=== PATIENT | female | born 1965 | race African-American/Black ===

== ENCOUNTER 2018-12-04 07:44 | Emergency (ER) | payer OTHER, SELFPAY ==
[~2018-12-04] VITALS: Ht 167.6 cm; Wt 79.4 kg
[2018-12-04 07:56] VITALS: BP 134/90
[2018-12-04] MEDS ORDERED: HYDR-3164 PO (08:52)
--- NOTE | 2018-12-04 08:52 | PHYS DOC ---
Past Medical History Past Medical History: Hypertension Additional Past Surgical Histo: R. LEG, L. ARM. Alcohol Use: Occasionally Drug Use: None Adult General Chief Complaint Chief Complaint: MECHANICAL FALL HPI HPI Patient is a 53 year old female who presents with complaining of a fall or extremities injuries. Patient states she had an accidental fall from a standing position while she was at 43 days ago and landed on her left side. Patient complaining of pain in left elbow, left knee, right arm and forearm and back and neck pain and states she was seen in another facility unremarkable x-ray and treated with muscle relaxant and ibuprofen without improvement of her pain. Patient rated her pain as 8/10 denies focal neuro deficit, fever and chills, vomiting and nausea, headache. Review of Systems Review of Systems Constitutional: Denies fever or chills [] Eyes: Denies change in visual acuity, redness, or eye pain [] HENT: Denies nasal congestion or sore throat [] Respiratory: Denies cough or shortness of breath [] Cardiovascular: No additional information not addressed in HPI [] GI: Denies abdominal pain, nausea, vomiting, bloody stools or diarrhea [] : Denies dysuria or hematuria [] Musculoskeletal: Denies back pain or joint pain [] Integument: Denies rash or skin lesions [] Neurologic: Denies headache, focal weakness or sensory changes [] Endocrine: Denies polyuria or polydipsia [] All other systems were reviewed and found to be within normal limits, except as documented in this note. Allergies Allergies Allergies Coded Allergies Type Severity Reaction Last Updated Verified codeine Allergy Intermediate 12/04/18 Yes Physical Exam Physical Exam Constitutional: Well developed, well nourished, mild distress, non-toxic appearance. [] HENT: Normocephalic, atraumatic. Eyes: PERRLA, EOMI, conjunctiva normal, no discharge. [] Neck: Normal range of motion, no tenderness, supple, no stridor. [] Cardiovascular:Heart rate regular rhythm, no murmur [] Lungs & Thorax: Bilateral breath sounds clear to auscultation [] Abdomen: Bowel sounds normal, soft, no tenderness, no masses, no pulsatile mass es. [] Skin: Warm, dry, no erythema, no rash. [] Back: No midline tenderness, no CVA tenderness. [] Extremities: No deformity or edema, small area of contusion of left elbow and left knee with mild tenderness,, no cyanosis, no clubbing, ROM intact, no edema. [] Neurologic: Alert and oriented X 3, normal motor function, normal sensory function, no focal deficits noted. [] Psychologic: Affect normal, judgement normal, mood normal. [] Current Patient Data Vital Signs Vital Signs Date Time Temp Pulse Resp B/P (MAP) Pulse Ox O2 Delivery O2 Flow Rate FiO2 12/04/18 07:56 98.4 83 18 134/90 (105) 97 Room Air 98.4 EKG EKG [] Radiology/Procedures Radiology/Procedures [] Course & Med Decision Making Course & Med Decision Making I've spoken with the patient and/or caregivers. I've explained the patient's condition, diagnosis and treatment plan based on information available to me at this time. I've answered the patient's and/or caregivers questions and addressed any concerns. The patient and/or caregivers have a good understanding the patient's diagnosis, condition and treatment plan as can be expected at this point. Vital signs have been stabilized. The patient's condition is stable for discharge from the emergency department. The patient will pursue further outpatient evaluation with her primary care provider or other designated consulting physician as outlined in the discharge instructions. Patient and/or caregivers are agreeable to this plan of care and follow-up instructions have been explained in detail. The patient and/or caregivers have received these instructions in written format and expressed understanding of these discharge instructions. The patient and her caregivers are aware that if any significant change in condition or worsening of symptoms should prompt him to immediately return to this of the closest emergency department. If an emergent department is not readily available I would encourage him to call 911. Ethan Disclaimer Ethan Disclaimer This electronic medical record was generated, in whole or in part, using a voice recognition dictation system. Departure Departure Impression: Primary Impression: Contusion of left upper extremity Additional Impressions: Strain of left knee Lumbosacral strain Acute cervical myofascial strain Fall Disposition: HOME, SELF-CARE (at 0850) Condition: STABLE Patient Instructions: Contusion, Muscle Strain Additional Instructions: Drink plenty of liquids Follow-up with your primary care physician in 3-5 days Return to ER if not getting better Apply ice on the affected area Continue current home medication Scripts Hydrocodone/Apap 5-325 (NORCO 5-325 TABLET) 1 Each Tablet 1 TAB PO PRN Q6HRS PRN for PAIN, #12 TAB 0 Refills Prov: AARTI BYNUM MD 12/04/18 Problem Qualifiers Primary Impression: Contusion of left upper extremity Encounter type: initial encounter Qualified Codes: S40.022A - Contusion of left upper arm, initial encounter Additional Impressions: Strain of left knee Encounter type: initial encounter Qualified Codes: S86.912A - Strain of unspecified muscle(s) and tendon(s) at lower leg level, left leg, initial encounter Lumbosacral strain Encounter type: initial encounter Qualified Codes: S39.012A - Strain of muscle, fascia and tendon of lower back, initial encounter Acute cervical myofascial strain Encounter type: initial encounter Qualified Codes: S16.1XXA - Strain of muscle, fascia and tendon at neck level, initial encounter Fall Encounter type: initial encounter Qualified Codes: W19.XXXA - Unspecified fall, initial encounter AARTI BYNUM MD Dec 04, 2018 08:52
== END 2018-12-04 09:07 | disposition home or self-care (01) ==
LOC: ER 07:44
DX: S86.912A Strain of unspecified muscle(s) and tendon(s) at lower leg level, left leg, initial encounter (principal); S39.012A Strain of muscle, fascia and tendon of lower back, initial encounter; S16.1XXA Strain of muscle, fascia and tendon at neck level, initial encounter; S50.02XA Contusion of left elbow, initial encounter; S80.02XA Contusion of left knee, initial encounter; I10 Essential (primary) hypertension; Z71.6 Tobacco abuse counseling; W19.XXXA Unspecified fall, initial encounter; Y93.89 Activity, other specified; Y92.89 Other specified places as the place of occurrence of the external cause; Y99.8 Other external cause status
CPT/HCPCS: 99283

== ENCOUNTER 2019-03-06 16:41 | Emergency (ER) | payer OTHER ==
[~2019-03-06] VITALS: Ht 167.6 cm; Wt 79.4 kg
[~2019-03-06 16:41] MED LIST: HYDR-3164 PO
[2019-03-06 17:08] VITALS: BP 144/101
[2019-03-06] MEDS ORDERED: IBUP-1060 PO (18:11)
--- NOTE | 2019-03-06 18:11 | PHYS DOC ---
Past Medical History Past Medical History: Hypertension (RAAD KHAN APRN) Additional Past Surgical Histo: R. LEG, L. ARM. (RAAD KHAN APRN) Alcohol Use: Occasionally Drug Use: None (RAAD KHAN APRN) Adult General Chief Complaint Chief Complaint: Neck Pain HPI HPI Patient is a 53 year old AA female who presents to the ER with complaints of chronic neck, back, and left knee pain that she has been dealing with since the beginning of this year. Pt states she has been taking a muscle relaxer that was prescribed by the [facility] doctor at night but she is out of the prescription 800 mg tablets of ibuprofen that was prescribed. She denies any new injury, numbness, tingling, weakness, saddle anesthesia, or loss of bowel/bladder control. She states the pain in her neck and left knee is constant 10/10 and her back is a 8/10. She has been going to physical therapy as prescribed and has not been [facility]. (RAAD KHAN APRN) Review of Systems Review of Systems Constitutional: Denies fever or chills [] Eyes: Denies change in visual acuity, redness, or eye pain [] Musculoskeletal: see hpi Integument: Denies rash or skin lesions [] Neurologic: Denies headache, focal weakness or sensory changes [] (RAAD KHAN APRN) Allergies Allergies Allergies Coded Allergies Type Severity Reaction Last Updated Verified codeine Allergy Intermediate 12/04/18 Yes (SARA MCQUEEN DO) Physical Exam Physical Exam Constitutional: Well developed, well nourished, no acute distress, non-toxic appearance. [] HENT: Normocephalic, atraumatic, bilateral external ears normal, nose normal. [] Eyes: conjunctiva normal, no discharge. [] Neck: Normal range of motion, no stridor. [] Lungs & Thorax: Respirations even and unlabored, no retractions, no respiratory distress Skin: Warm, dry, no erythema, no rash. [] Extremities: No cyanosis, ROM intact, no edema. [] Neurologic: Alert and oriented X 3, normal motor function, normal sensory function, no focal deficits noted. [] Psychologic: Affect normal, judgement normal, mood normal. [] (RAAD KHAN APRN) Current Patient Data Vital Signs Vital Signs Date Time Temp Pulse Resp B/P (MAP) Pulse Ox O2 Delivery O2 Flow Rate FiO2 03/06/19 17:08 98.4 95 18 144/101 (115) 100 Room Air 98.4 (SARA MCQUEEN DO) EKG EKG [] (RAAD KHAN APRN) Radiology/Procedures Radiology/Procedures [] (RAAD KHAN APRN) Course & Med Decision Making Course & Med Decision Making Pertinent Labs and Imaging studies reviewed. (See chart for details) dx: Medication refill Patient denies any new injuries or trauma. States she is out of the ibuprofen 800 mg tablets that helped to reduce her pain. She continues to take the muscle relaxer that was prescribed by the [facility] physician and continues to participate in physical therapy. She declines reimaging of her chronic pain areas. Prescription for ibuprofen 800 mg 3 times a day was written. Patient instructed to follow-up with [facility] doctor for further evaluation and treatment. Patient verbalized an understanding of home care, medications, follow-up, and return to ED instructions and was in agreement with the plan of care. [] (RAAD KHAN APRN) Dragon Disclaimer Dragon Disclaimer This electronic medical record was generated, in whole or in part, using a voice recognition dictation system. (RAAD KHAN APRN) Departure Departure Impression: Primary Impression: Medication refill Disposition: 01 HOME, SELF-CARE Condition: STABLE Referrals: BRIGID BROWNING MD (PCP) Patient Instructions: Medication Refill, Emergency Department Additional Instructions: Fill the prescription and use as directed. Follow-up with [facility] doctor for further evaluation and treatment, return to the ER if your symptoms worsen. Scripts Ibuprofen (IBUPROFEN) 800 Mg Tablet 800 MG PO PRN Q8HRS PRN for PAIN for 10 Days, #30 TAB 0 Refills Prov: RAAD KHAN APRN 03/06/19 Attending Signature Attending Signature I have reviewed the PA/SUPERVISOR SHUTTLE VENEERING's note and plan of care. I was available for consultation as needed during the patient's visit in the emergency department. I agree with the clinical impression, plan, and disposition. (SARA MCQUEEN DO) RAAD KHAN APRN Mar 06, 2019 18:11 SARA MCQUEEN DO Mar 12, 2019 00:11
== END 2019-03-06 18:14 | disposition home or self-care (01) ==
LOC: ER 16:41
DX: G89.29 Other chronic pain (principal); M54.2 Cervicalgia; M25.562 Pain in left knee; M54.9 Dorsalgia, unspecified; Z76.0 Encounter for issue of repeat prescription; Z88.5 Allergy status to narcotic agent
CPT/HCPCS: 99282